=== PATIENT | male | born 1965 ===

== ENCOUNTER 2018-04-25 12:58 | Outpatient (CLI) | payer OTHER | END 2018-04-25 12:59 | disposition home or self-care (01) | LOC: LABHHL 12:58 | PROVIDERS: ATTEND Surgery | DX: L02.215 Cutaneous abscess of perineum (principal) | CPT/HCPCS: 87076; 87116; 87186 ==

== ENCOUNTER 2018-08-04 09:51 | Outpatient (CLI) | payer OTHER ==
[2018-08-04] MEDS ORDERED: XYLOCAINE TOPICAL 4% TP ONE (11:00)
[2018-08-05] MEDS ORDERED: AD OINTMENT TP SCH (10:00)
== END 2018-08-04 09:52 | disposition home or self-care (01) ==
LOC: WOUND 09:51
PROVIDERS: ATTEND Surgery
DX: I87.311 Chronic venous hypertension (idiopathic) with ulcer of right lower extremity (principal); I70.233 Atherosclerosis of native arteries of right leg with ulceration of ankle; L97.311 Non-pressure chronic ulcer of right ankle limited to breakdown of skin
CPT/HCPCS: 29581; G0463; 99215

== ENCOUNTER 2018-08-11 08:02 | Outpatient (CLI) | payer OTHER ==
[2018-08-11] MEDS ORDERED: XYLOCAINE TOPICAL 4% TP ONE (08:57)
== END 2018-08-11 08:03 | disposition home or self-care (01) ==
LOC: WOUND 08:02
PROVIDERS: ATTEND Surgery
DX: I87.311 Chronic venous hypertension (idiopathic) with ulcer of right lower extremity (principal); L97.311 Non-pressure chronic ulcer of right ankle limited to breakdown of skin; I70.233 Atherosclerosis of native arteries of right leg with ulceration of ankle; Q87.43 Marfan syndrome with skeletal manifestation
CPT/HCPCS: 29581

== ENCOUNTER 2018-08-18 08:01 | Outpatient (CLI) | payer SELFPAY ==
[2018-08-18] MEDS ORDERED: XYLOCAINE TOPICAL 4% TP ONE (08:30)
[2018-08-18] MEDS ORDERED: AD OINTMENT TP SCH (09:00)
== END 2018-08-18 08:02 | disposition home or self-care (01) ==
LOC: WOUND 08:01
PROVIDERS: ATTEND Surgery
DX: I87.311 Chronic venous hypertension (idiopathic) with ulcer of right lower extremity (principal); L97.312 Non-pressure chronic ulcer of right ankle with fat layer exposed; I70.233 Atherosclerosis of native arteries of right leg with ulceration of ankle; Q87.43 Marfan syndrome with skeletal manifestation
CPT/HCPCS: 29581

== ENCOUNTER 2018-08-25 07:52 | Outpatient (CLI) | payer SELFPAY ==
[2018-08-25] MEDS ORDERED: XYLOCAINE TOPICAL 4% TP ONE (08:02)
[2018-08-25] MEDS ORDERED: SILVER NITRATE TP ONE (08:12)
== END 2018-08-25 07:53 | disposition home or self-care (01) ==
LOC: WOUND 07:52
PROVIDERS: ATTEND Surgery
DX: I87.311 Chronic venous hypertension (idiopathic) with ulcer of right lower extremity (principal); I70.233 Atherosclerosis of native arteries of right leg with ulceration of ankle; L97.312 Non-pressure chronic ulcer of right ankle with fat layer exposed; Q87.43 Marfan syndrome with skeletal manifestation

== ENCOUNTER 2018-09-01 07:58 | Outpatient (CLI) | payer SELFPAY | END 2018-09-01 07:59 | disposition home or self-care (01) | LOC: WOUND 07:58 | PROVIDERS: ATTEND Surgery | DX: I87.311 Chronic venous hypertension (idiopathic) with ulcer of right lower extremity (principal); I70.233 Atherosclerosis of native arteries of right leg with ulceration of ankle; L97.312 Non-pressure chronic ulcer of right ankle with fat layer exposed; Q87.43 Marfan syndrome with skeletal manifestation ==

== ENCOUNTER 2018-09-08 07:59 | Outpatient (CLI) | payer OTHER ==
[2018-09-08] MEDS ORDERED: XYLOCAINE TOPICAL 4% TP ONE (08:30)
== END 2018-09-08 08:00 | disposition home or self-care (01) ==
LOC: WOUND 07:59
PROVIDERS: ATTEND Surgery
DX: I87.311 Chronic venous hypertension (idiopathic) with ulcer of right lower extremity (principal); I70.233 Atherosclerosis of native arteries of right leg with ulceration of ankle; L97.312 Non-pressure chronic ulcer of right ankle with fat layer exposed; Q87.43 Marfan syndrome with skeletal manifestation

== ENCOUNTER 2018-09-15 08:01 | Outpatient (CLI) | payer OTHER ==
[2018-09-15] MEDS ORDERED: XYLOCAINE TOPICAL 4% TP ONE (08:06)
[2018-09-15] MEDS ORDERED: SILVER NITRATE TP ONE (08:06)
== END 2018-09-15 08:02 | disposition home or self-care (01) ==
LOC: WOUND 08:01
PROVIDERS: ATTEND Surgery
DX: I87.311 Chronic venous hypertension (idiopathic) with ulcer of right lower extremity (principal); I70.233 Atherosclerosis of native arteries of right leg with ulceration of ankle; L97.312 Non-pressure chronic ulcer of right ankle with fat layer exposed; Q87.43 Marfan syndrome with skeletal manifestation

== ENCOUNTER 2018-09-22 07:58 | Outpatient (CLI) | payer OTHER ==
[2018-09-22] MEDS ORDERED: SILVER NITRATE TP ONE (08:30)
[2018-09-22] MEDS ORDERED: XYLOCAINE TOPICAL 4% TP ONE (08:30)
== END 2018-09-22 07:59 | disposition home or self-care (01) ==
LOC: WOUND 07:58
PROVIDERS: ATTEND Surgery
DX: I87.311 Chronic venous hypertension (idiopathic) with ulcer of right lower extremity (principal); I70.233 Atherosclerosis of native arteries of right leg with ulceration of ankle; L97.312 Non-pressure chronic ulcer of right ankle with fat layer exposed; Q87.43 Marfan syndrome with skeletal manifestation

== ENCOUNTER 2018-09-29 08:33 | Outpatient (CLI) | payer OTHER ==
[2018-09-29] MEDS ORDERED: XYLOCAINE TOPICAL 4% TP ONE (09:00)
== END 2018-09-29 08:34 | disposition home or self-care (01) ==
LOC: WOUND 08:33
PROVIDERS: ATTEND Surgery
DX: I70.233 Atherosclerosis of native arteries of right leg with ulceration of ankle (principal); I87.311 Chronic venous hypertension (idiopathic) with ulcer of right lower extremity; L97.312 Non-pressure chronic ulcer of right ankle with fat layer exposed; Q87.43 Marfan syndrome with skeletal manifestation

== ENCOUNTER 2018-10-20 08:03 | Outpatient (CLI) | payer OTHER | END 2018-10-20 08:04 | disposition home or self-care (01) | LOC: WOUND 08:03 | PROVIDERS: ATTEND Surgery | DX: I87.311 Chronic venous hypertension (idiopathic) with ulcer of right lower extremity (principal); I70.233 Atherosclerosis of native arteries of right leg with ulceration of ankle; L97.311 Non-pressure chronic ulcer of right ankle limited to breakdown of skin; Q87.43 Marfan syndrome with skeletal manifestation | CPT/HCPCS: 99213; G0463 ==

== ENCOUNTER 2018-11-03 08:10 | Outpatient (CLI) | payer SELFPAY | END 2018-11-03 08:11 | disposition home or self-care (01) | LOC: WOUND 08:10 | PROVIDERS: ATTEND Surgery | DX: I87.311 Chronic venous hypertension (idiopathic) with ulcer of right lower extremity (principal); I70.233 Atherosclerosis of native arteries of right leg with ulceration of ankle; L97.318 Non-pressure chronic ulcer of right ankle with other specified severity; Q87.43 Marfan syndrome with skeletal manifestation | CPT/HCPCS: 99213; G0463 ==